=== PATIENT | female | born 1990 | race Two or more races ===

== ENCOUNTER 2018-01-05 11:39 | Inpatient (IN) | payer OTHER ==
[2018-01-04 17:59] VITALS: BMI 44.7
[2018-01-05] MEDS ORDERED: MIDAZOLAM HCL 2 MG/2 ML SINGLE DOSE VIAL ONE ×2 (13:08→16:48)
[2018-01-05] MEDS ORDERED: LIDOCAINE HCL 2% 100 MG/5 ML DISP.SYRIN ONE (13:08)
[2018-01-05] MEDS ORDERED: PROPOFOL 20 ML ONE ×2 (13:08→16:48)
[2018-01-05] MEDS ORDERED: DEXAMETHASONE SOD PHOSPHATE 4 MG/1 ML VIAL ONE ×2 (13:08→17:55)
[2018-01-05] MEDS ORDERED: ROCURONIUM BROMIDE 50 MG/5 ML VIAL ONE ×3 (13:08→17:32)
[2018-01-05] MEDS ORDERED: fentaNYL CITRATE 250 MCG/5 ML VIAL ONE ×2 (13:08→16:48)
[2018-01-05] MEDS ORDERED: NEOSTIGMINE METHYLSULFATE 0.5 MG/ML - 10 ML MDV ONE ×2 (13:24→17:57)
[2018-01-05] MEDS ORDERED: GLYCOPYRROLATE 0.2 MG/1 ML VIAL ONE ×2 (13:24→17:56)
--- NOTE | 2018-01-05 13:49 | HP ---
History & Physical Update - History History: No Change - Physical Physical: No Change - Assessment Assessment: No Change - Plan Plan: No Change (Laparoscopic possible open vertical sleev gastrectomy, possible liver biopsy, upper endoscopy)
[2018-01-05] MEDS ORDERED: SUCCINYLCHOLINE CHLORIDE 200 MG/10 ML VIAL ONE (16:49)
[2018-01-05] MEDS ORDERED: ceFAZolin SODIUM 1 GM VIAL IVPB ONE (17:15)
[2018-01-05] MEDS ORDERED: ceFAZolin SODIUM 1 GM VIAL ONE (17:21)
[2018-01-05] MEDS ORDERED: BUPIVACAINE HCL/PF 0.5% (5MG/ML) 10 ML VIAL IJ ONE (18:31)
[2018-01-05] MEDS ORDERED: HYDROmorphone HCL CARPU-JECT 4 MG/1 ML DISP.SYRIN IVPB PRN (18:47)
--- NOTE | 2018-01-05 18:47 | OP ---
Operative Note - Note: Operative Date: 01/05/18 Pre-Operative Diagnosis: Morbid obesity Operation: Laparoscopic vertical sleeve gastrectomy. Laparoscopic wedge liver biopsy. EGD Findings: No leak/obstruction Post-Operative Diagnosis: Other (Morbid obesity, hepatomegaly) Surgeon: John Vickers Manager Operations: Jaspreet Kline Anesthesia: General Specimens Removed: Greater curvature of stomach. Liver biopsy Estimated Blood Loss (mls): 30 Drains & Tubes with Location: 36 Fr bougie Operative Report Dictated: Yes
[2018-01-05] MEDS ORDERED: HYDROmorphone HCL CARPU-JECT 1 MG/1 ML DISP.SYRIN IVPUSH PRN (18:58)
[2018-01-05] MEDS ORDERED: ACETAMINOPHEN INJECTION 100 ML IVPB ONE (19:01)
[2018-01-05] MEDS ORDERED: HYDROmorphone HCL CARPU-JECT 4 MG/1 ML DISP.SYRIN ONE (19:01)
[2018-01-05] MEDS: ACETAMINOPHEN 1000 MG/100 ML VIAL (NON FORMULARY) IVPB SCH (19:20)
[2018-01-05] MEDS: SODIUM CHLORIDE 1,000 ML IV SCH (19:20)
[2018-01-05] MEDS: METOCLOPRAMIDE HCL INJECTION 10 MG/2 ML VIAL IVPUSH SCH ×2 (19:35→21:00)
[2018-01-05 19:42] LABS: HEMATOCRIT 37.8 % (32.4-45.2); HEMOGLOBIN 12.4 GM/dL (10.7-15.3); MCH 29.6 pg (25.7-33.7); MCHC 32.9 g/dl (32.0-36.0); MEAN PLT VOLUME 10.5 fl (7.5-11.1); PLATELET COUNT 178 K/MM3 (134-434); RDW 13.4 % (11.6-15.6); WHITE BLOOD COUNT 11.1 K/mm3 (4.0-10.0)
[2018-01-05 20:17] LABS: ALBUMIN 3.6 g/dl (3.4-5.0); ANION GAP 7 (8-16); BILIRUBIN,TOTAL 0.5 mg/dL (0.2-1.0); BLOOD UREA NITROGEN 10 mg/dL (7-18); CALCIUM 8.2 mg/dL (8.5-10.1); CHLORIDE 109 mmol/L (98-107); CO2 24 mmol/L (21-32); CREATININE 0.6 mg/dL (0.55-1.02); GLUCOSE,RANDOM 128 mg/dL (74-106); POTASSIUM 3.7 mmol/L (3.5-5.1); SGOT/AST 48 U/L (15-37); SGPT/ALT 45 U/L (12-78); SODIUM 140 mmol/L (136-145); TOT PROT 6.6 g/dl (6.4-8.2)
[2018-01-05 20:18] LABS: ALK PHOS 106 U/L (45-117)
[2018-01-05] MEDS ORDERED: FAMOTIDINE 20 MG/50 ML IVPB 20 MG/50 ML MG IVPB ONE (20:45)
[2018-01-05] MEDS ORDERED: ENOXAPARIN NA (PORCINE) 40 MG/0.4 ML DISP.SYRIN SQ ONE (20:45)
[2018-01-05] MEDS ORDERED: FAMOTIDINE 20 MG PREMIXED IVPB IVPB ONE (21:05)
[2018-01-05] MEDS: ENOXAPARIN NA (PORCINE) 40 MG/0.4 ML DISP.SYRIN SQ SCH ×2 (21:05→22:16)
[2018-01-05] MEDS: ONDANSETRON 4 MG/2 ML VIAL IVPUSH SCH ×2 (22:24→22:25)
[2018-01-05] MEDS: FAMOTIDINE 20 MG/50 ML IVPB 20 MG/50 ML MG IVPB SCH (22:26)
[2018-01-06] MEDS: SODIUM CHLORIDE 1,000 ML IV SCH ×2 (00:12→06:30)
[2018-01-06] MEDS: METOCLOPRAMIDE HCL INJECTION 10 MG/2 ML VIAL IVPUSH SCH ×4 (00:13→18:14)
[2018-01-06] MEDS: ACETAMINOPHEN 1000 MG/100 ML VIAL (NON FORMULARY) IVPB SCH ×3 (00:13→12:27)
[2018-01-06] MEDS: ONDANSETRON 4 MG/2 ML VIAL IVPUSH SCH ×6 (02:04→22:11)
[2018-01-06 06:50] LABS: HEMATOCRIT 36.3 % (32.4-45.2); HEMOGLOBIN 12.2 GM/dL (10.7-15.3); MCH 30.2 pg (25.7-33.7); MCHC 33.6 g/dl (32.0-36.0); MEAN CELL VOLUME 89.9 fl (80-96); MEAN PLT VOLUME 10.3 fl (7.5-11.1); PLATELET COUNT 183 K/MM3 (134-434); RBC 4.03 M/mm3 (3.60-5.2); RDW 13.2 % (11.6-15.6); WHITE BLOOD COUNT 8.1 K/mm3 (4.0-10.0)
[2018-01-06] MEDS ORDERED: PT OWN MED DRAWER 7, Y5N ONE ×2 (06:54→12:24)
[2018-01-06 07:05] LABS: CHLORIDE 107 mmol/L (98-107); POTASSIUM 4.2 mmol/L (3.5-5.1); SODIUM 139 mmol/L (136-145)
[2018-01-06 07:12] LABS: ALBUMIN 3.3 g/dl (3.4-5.0); ALK PHOS 98 U/L (45-117); ANION GAP 8 (8-16); BILIRUBIN,TOTAL 0.8 mg/dL (0.2-1.0); BLOOD UREA NITROGEN 11 mg/dL (7-18); CALCIUM 8.3 mg/dL (8.5-10.1); CO2 24 mmol/L (21-32); CREATININE 0.5 mg/dL (0.55-1.02); GLUCOSE,RANDOM 124 mg/dL (74-106); SGOT/AST 54 U/L (15-37); SGPT/ALT 55 U/L (12-78); TOT PROT 6.4 g/dl (6.4-8.2)
--- NOTE | 2018-01-06 08:26 | SPEC ---
DATE OF OPERATION: 01/05/2018 SURGEON: John Vickers MD OPERATIONS LIEUTENANT: Jaspreet Kline MD PREOPERATIVE DIAGNOSES: 1. Morbid obesity. 2. Body mass index 44.8. POSTOPERATIVE DIAGNOSES: 1. Morbid obesity. 2. Body mass index 44.8. 3. Hepatomegaly. PROCEDURES: 1. Laparoscopic vertical sleeve gastrectomy. 2. Laparoscopic wedge liver biopsy. 3. Upper endoscopy/esophagogastroduodenoscopy. SPECIMENS: 1. Greater curvature of the stomach. 2. Liver biopsy. ESTIMATED BLOOD LOSS: 30 mL. DRAINS: None. ANESTHESIA: GET. BOUGIE SIZE: 36-Azeri This is a 27-year-old female who presents to the office for weight loss options. After describing different options, decided to proceed with a laparoscopic, possible open, vertical sleeve gastrectomy, possible liver biopsy, and upper endoscopy. The risks and benefits of the procedure were explained. RISKS AND BENEFITS: After describing the different options for weight loss management, the patient decided to proceed with a laparoscopic, possible open vertical sleeve gastrectomy. The patient was seen by the respective subspecialties and cleared for surgery. The risks and benefits of the procedure were explained. These included bleeding, infection, hernia, TX, DVT, PE, injury to surrounding structures including the liver, colon, bowel, spleen, esophagus, vessel injury, nerve injury, weight regain, gastric leak, staple line leak, sleeve leak, obstruction, vitamin deficiency, hair loss and as some of the possible complications. The patient understood and signed informed consent. DESCRIPTION OF PROCEDURE: The patient was placed supine on the operating room table. The patient underwent general endotracheal intubation. A Holt catheter was inserted. The arms were brought out at 90 degrees and secured. A footboard was placed and the legs were secured laterally with padding. The abdomen was prepped and draped in the usual sterile fashion. A timeout was performed. An incision was made in the left upper quadrant and a Veress needle inserted. Pneumoperitoneum was established. Subsequently, the Veress needle was removed and a 12-mm trocar was placed. The laparoscopic camera was then inserted and inspection of the abdominal cavity was performed. An incision was then made in the supraumbilical area and a 15-mm trocar was placed under direct visualization. A 5-mm trocar was then placed in the right upper quadrant and a 5-mm trocar was placed below the left subcostal margin. A stab wound was made in the subxiphoid area and a Wanda clamp inserted and removed to dilate the tract. A Theron liver retractor was inserted. The post was secured at the bedside by the nursing staff. The patient was placed in steep reverse Trendelenburg position and the Theron liver retractor was used to secure the liver towards the anterior abdominal wall. The pylorus was identified and 6 cm proximal to it, the lesser sac was entered using the LigaSure device. All lateral attachments to the greater curvature of the stomach, including the short gastric vessels, were ligated using the LigaSure device toward the gastrosplenic and gastrophrenic ligaments. Once this was done in its entirety, it was confirmed that all tubes within the nasal or oropharyngeal cavity, including a temperature probe, was removed by Anesthesia. The bougie was then inserted by Anesthesia. Transection of the stomach was then begun staying adjacent to the bougie but away from the angularis. Transection of the stomach was performed near the portion of the stomach where the lesser sac was entered. Two laparoscopic Endo-ADITYA black keith were used at this location. Laparoscopic Endo ADITYA purple staple loads were then used for the remainder of the transection until the greater curvature of the stomach was fully transected. This was done staying close to the bougie. Care was taken to stay away from the angle of His cephalad. The staple line was then inspected. Hemostasis was identified. A leak test was then performed. It was clamped distally to the staple line. Irrigation solution was placed in the left upper quadrant and air was insufflated by Anesthesia into the sleeve. No leaks were identified. No obstruction was identified. This was done through the entirety of the staple line. At this point, the irrigation solution was suctioned and again, hemostasis was noted. A wedge liver biopsy was then performed. The left lobe of the liver was identified and a portion of the edge was grasped. Using electrocautery, a wedge of the liver was excised. This was removed and sent off the field as specimen. Hemostasis at the site of the wedge liver biopsy was attained using electrocautery. The 15-mm supraumbilical trocar was then removed and the greater curvature specimen removed from the site using a sponge stick lester. The specimen was inspected and a Veress needle inserted. The specimen insufflated adequately and no leak was identified. The staple line was noted to be intact. A Ellis-Sandrine device was then used to temporarily close the fascia with a 0 Vicryl suture at the site. The 15-mm trocar was then reinserted and the 12-mm trocar in the left upper quadrant was removed. The fascia at this site was then closed using the Ellis-Sandrine device with a 0 Vicryl suture. Again, hemostasis was noted. The Theron liver retractor was then removed under direct visualization. Pneumoperitoneum was desufflated and the fascial sutures were secured. Hemostasis was noted at all incision sites and Marcaine was injected at all incision sites. All incision sites were closed using 4-0 Biosyn. Sterile dressings were applied. In addition, an upper endoscopy was performed to further evaluate for leak and obstruction. No leak or obstruction was identified after the endoscope was inserted into the patient's mouth, esophagus, GE junction, and gastric pouch. In addition, the staple line was inspected and hemostasis was noted. The endoscope was used to suction the stomach and the endoscope was fully removed. The patient tolerated the procedure well and was transferred to the recovery room in stable condition. Danielle [id number]
[2018-01-06] MEDS: ENOXAPARIN NA (PORCINE) 40 MG/0.4 ML DISP.SYRIN SQ SCH ×2 (09:36→22:10)
[2018-01-06] MEDS: FAMOTIDINE 20 MG/50 ML IVPB 20 MG/50 ML MG IVPB SCH ×2 (09:37→22:10)
[2018-01-06] MEDS ORDERED: SODIUM CHLORIDE 1,000 ML IV SCH (11:30)
--- NOTE | 2018-01-06 15:29 | PN ---
Progress Note (short form) - Note Progress Note: Anesthesia Pt seen and examined S:Alert and awake O: Vital Signs Temperature 98.6 F 01/06/18 14:39 Pulse Rate 85 01/06/18 14:39 Respiratory Rate 18 01/06/18 14:39 Blood Pressure 130/75 01/06/18 14:39 O2 Sat by Pulse Oximetry (%) 98 01/06/18 09:00 CBC, BMP 01/06/18 05:30 01/06/18 05:30 A/P: Current Active Problems BMI 40.0-44.9, adult (Acute) Hepatomegaly (Acute) Morbid obesity due to excess calories (Acute) s/p lap Gatric sleeve Doing well post op Continue current care Jet Lombardi MD
[2018-01-06] MEDS: oxyCODONE HCL 5 MG TABLET PO PRN (18:20)
--- NOTE | 2018-01-06 20:48 | PN ---
Progress Note (short form) - Note Progress Note: POD 1 Pain controlled No nausea Vital Signs Period Temp Pulse Resp BP Sys/Morris Pulse Ox Last 24 Hr 98.3 F-99.2 F 76-105 16-20 113-151/60-80 97-100 Abd soft CBC, BMP 01/06/18 05:30 01/06/18 05:30 UGI: no leak/obstruction Clears Ambulate
[2018-01-06] MEDS: ACETAMINOPHEN 325 MG TABLET (FP) PO PRN (22:11)
[2018-01-07] MEDS: METOCLOPRAMIDE HCL INJECTION 10 MG/2 ML VIAL IVPUSH SCH ×2 (02:16→06:37)
[2018-01-07] MEDS: ONDANSETRON 4 MG/2 ML VIAL IVPUSH SCH ×2 (02:16→06:37)
[2018-01-07] MEDS: ACETAMINOPHEN 325 MG TABLET (FP) PO PRN (09:00)
[2018-01-07] MEDS: oxyCODONE HCL 5 MG TABLET PO PRN (09:00)
[2018-01-07] MEDS: ENOXAPARIN NA (PORCINE) 40 MG/0.4 ML DISP.SYRIN SQ SCH (09:02)
[2018-01-07] MEDS: FAMOTIDINE 20 MG/50 ML IVPB 20 MG/50 ML MG IVPB SCH (09:03)
[2018-01-07 09:25] VITALS: BP 137/77; PULSE 100; TEMP 100
--- NOTE | 2018-01-11 18:11 | PATH ---
Surgical Pathology Report Patient Name: PAUL GARCIA [facility]. Rec. #: [id number] /Age/Gender: 1990 (Age: 27) / F Account: [id number] Location: 4 SO PEDS/ADOL Taken: 01/05/2018 Received: 01/06/2018 Reported: 01/11/2018 Physicians: John Vickers M.D. Specimen(s) Received A: GREATER CURVATURE STOMACH B: LIVER BIOPSY Clinical History Morbid obesity Final Diagnosis A. STOMACH, GREATER CURVATURE, LAPAROSCOPIC VERTICAL SLEEVE GASTRECTOMY: PORTION OF STOMACH WITH MODERATE CHRONIC GASTRITIS. IMMUNOHISTOCHEMICAL STAIN FOR H. PYLORI IS POSITIVE (MANY). B. LIVER, BIOPSY: LIVER PARENCHYMA WITH MILD STEATOSIS (5-10%). NO INCREASE IN IRON AND FIBROSIS ON PERFORMED SPECIAL STAINS (IRON AND TRICHROME). Comment: Subcapsular biopsy with thermal artifact. Electronically Signed Natasha Del Real M.D. Gross Description A. Received in formalin, labeled "greater curvature of stomach," is a 98 gram, 17.0 x 4.0 x 2.8 cm. portion of stomach with a stapled margin of resection. The serosa is stevens-owens with minimal attached fat. The mucosa is stevens-pink with normal folds. No mucosal masses are identified. Crosscutter Rolled Glass sections are submitted in one cassette. B. Received in formalin labeled "liver biopsy," are 2 stevens, irregular portions of soft tissue, consistent with liver tissue measuring 3.5 x 2.7 x 1.0 cm and 2.8 x 1.5 x 0.9 cm. No lesions are identified. The specimens are serially sectioned and reimbursement representative sections are submitted in 2 cassettes. /01/09/2018 [facility]01/09/2018
== END 2018-01-07 10:40 | disposition home or self-care (01) | DRG 403 ==
LOC: JSAMEDAYSX 11:39 → EDSTATUS 20:00 → J4S 22:13
PROVIDERS: ADMIT Surgery; ATTEND Surgery
PROC: 0DB64Z3 Excision of Stomach, Percutaneous Endoscopic Approach, Vertical (ICD-10-PCS; principal; 2018-01-05 15:50)
PROC: 0DJ08ZZ Inspection of Upper Intestinal Tract, Via Natural or Artificial Opening Endoscopic (ICD-10-PCS; 2018-01-05 15:50)
PROC: 0FB24ZX Excision of Left Lobe Liver, Percutaneous Endoscopic Approach, Diagnostic (ICD-10-PCS; 2018-01-05 15:50)
DX: E66.01 Morbid (severe) obesity due to excess calories (principal); Z68.41 Body mass index [BMI] 40.0-44.9, adult; R16.0 Hepatomegaly, not elsewhere classified
CPT/HCPCS: 36415; 74241-TC-FY; 80053; 84703; 85027; 86850; 86900; 86901; 88307-TC; 94010; 94760; J0131; J7030